=== PATIENT | female | born 1995 | race Caucasian/White ===

== ENCOUNTER 2025-01-25 20:05 | Emergency (ER) | payer BC, OTHER, SELFPAY ==
--- OUTSIDE RECORDS SUMMARY | 2025-01-25 20:07 | XMS_ITS | Clinical Summary ---
Author Organization [facility] Address [address] [place] [address] Care Team Providers Care Home Visit Field Care Manager Name Role Phone Trish Salinas DO Primary Care Provider [phone] Allergies Active Allergy Reactions Criticality Noted Date Comments Gluten Verified in Meditech: Y, Severity in Meditech: S Lactose *Unknown 12/16/2022 Wheat Bran *Unknown 08/20/2014 Medications nystatin (MYCOSTATIN) creamIndication s:Intertrigo Apply topically to affected area(s) two times daily. 30 g 5 3 Active Active Problems Problem Noted Date Diagnosed Date Vitamin D deficiency 12/17/2022 Pap smear for cervical cancer screening 11/07/19 23 Overview (12/16/2022): 11/2022 NIL/HPV negative Plan: Pap/HPV due in 5 years Unspecified episodic mood disorder 06/01/2011 Bipolar I disorder, most rec ent episode (or current) manic, unspecified 10/22/2010 Attention deficit disorder with hyperactivity(31 4.01) 10/22/2010 PMS (premenstrual syndrome) 07/24/2009 Other acne Overview (08/22/2009): Noted from office visit on 08/05/2008. Alka Seals RN............... 08/22/2009 2:44 PM Resolved Problems Problem Noted Date Diagnosed Date Resolved Date Exercise induced bronchospasm 07/07/2009 11/17/2022 Immunizations Immunization Administration Dates Next Due DTP 1995 DTP-HIB 03/13/1996,1995 DTaP 10/02/1996 Hepatitis B (Adult) 1995 Hepatitis B, Unspecified 03/13/1996,0707/1995,1995,07/12 Hib Conjugate, Unspecified 06/26/1996,1995 Human Papilloma Virus Vaccine 02/03/2010, 009,05/29/2008 Influenza, IIV3 (Age >=3 years) 04/02/2013,02/18 MENINGOCOCCAL VACCINE 2 VIAL [id number] (MENVEO) 09/09/2011 MMR 06/26/1996 Oral Polio Vaccine 03/13/1996,1995, 996 Tdap 04/21/2018,12/22/2017,03/14/2007 Family History Medical History Relation Name Comments Psychiatric illness Father bipolar ADHD Psychiatric illness Maternal Aunt 1 Psychiatric illness Maternal Aunt 2 depre ssion Psychiatric illness Maternal Aunt 3 depre ssion Alcohol/Drug Maternal Grandfather Alcohol/Drug Maternal Grandmother Cancer-breast Maternal Grandmother Dx'd a t 46yr old 2008 Psychiatric illness Maternal Grandmother Psychiatric illness Maternal Uncle Other Mother migraines Psychiatric illness Mother history of depression Psychiatric illness Paternal Aunt ADHD, b ipolar Diabetes Paternal Grandfather Psychiatric illness Paternal Grandfather Diabetes Paternal Grandmother Hyperlipidemia Paternal Grandmother Other Paternal Grandmother Psychiatric illness Paternal Grandmother depression Good Health Sister Seizures No Family History Relation Name Status Comments Father Alive Maternal Aunt 1 Maternal Aunt 2 Maternal Aunt 3 Maternal Grandfather Maternal Grandmother Maternal Uncle Mother Alive Paternal Aunt Paternal Grandfather Paternal Grandmother Sister Alive Social History Tobacco Use Types Packs/Day Years Used Date Smoking Tobacco: Never Smokeless Tobacco: Never Tobacco Cessation:Counseling Given: No Alcohol Use Standard Drinks/Week Comments Not Currently 0 (1 standard drink = 0.6 oz pur e alcohol) PHQ-2 Answer Date Recorded PHQ-2 TOTAL SCORE 1 11/17/2022 Social Connections Answer Date Recorded Frequency of Communication with Friends and Fami ly Not on file 11/17/2022 Financial Resource Strain Answer Date R ecorded Difficulty of Paying Living Expenses Not on file 05/09/2021 Difficulty of Paying Living Expenses Not on file 05/09/2021 Comments No Sex and Gender Information Value Date Recorded Sex Assigned at Not on file Legal Sex Female 5:25 AM MUSIC JOURNALIST Gender Identity Not on file Sexual Orientation Not on file Obstetrics History Para Term AB IAB SAB Ectopic Multiple Livin g Live Births 0 0 0 0 0 0 0 0 0 0 Last Filed Vital Signs Vital Sign Reading Time Taken Comments Blood Pressure 110/72 04/05/2023 10:14 AM MUSIC JOURNALIST Pulse 71 04/05/2023 10:14 AM MUSIC JOURNALIST Temperature 36.6 C (97.8 F) 07/01/2018 3:39 PM MUSIC JOURNALIST Respiratory Rate 16 07/01/2018 3:39 PM MUSIC JOURNALIST Oxygen Saturation 98% 04/05/2023 10:14 AM MUSIC JOURNALIST Inhaled Oxygen Concentration - - Weight 103 kg (227 lb) 04/05/2023 10:14 AM MUSIC JOURNALIST Height 155.8 cm (5' 1.34) 04/05/2023 10:[address] Body Mass Index 42.42 04/05/2023 10:14 AM MUSIC JOURNALIST Plan of Treatment Health Maintenance Due Date Last Done Comments Depression screening for age 12+ 11/18/2023 11/17/2022 BMI (ht and wt on same day) for age 18+ 04/05/2024 04/05/2023, 11/17/2022, 09/25/2020, Additional history exists COVID-19 vaccine series ( season) 2025 04/12/2021, 03/15/2021 Influenza Vaccine (#1) 2025 04/02/2013, 2009 Pap test for age 21-65 11/18/2027 11/17/2022, 2022 Tetanus booster 04/21/2028 04/21/2018, 12/07, 03/14/2007 RSV vaccine for adults or (1 - 1-dose 75+ series) 2070 Hepatitis B series for 19+ Completed 03/13, 1995, 1995, Additional history exists HPV series for age 9-45 Completed 02/04/20 10, 04/21/2009, 05/29/2008 HIV for age 15-65 Completed 11/17/2022 Hepatitis C screening for age 18-79 Completed 11/17/2022 Pneumococcal series for age 6-49 Aged Out No longer eligible based on patient's age to complete this topic Procedures Procedure Name Priority Date/Time Associated Diagnosis Comments LC HIV-1/O/2, 4TH GENERATION Routine 11/17/2022 8:59 AM CDT Screening for HIV (human immunodeficiency virus) LC HCV ANTIBODY RFX TO QUANT PCR Routine 11/17/2022 8:59 AM CDT Need for hepatitis C screening test HPV HIGH RISK Routine 11/17/2022 8:40 AM CDT Screening for cervical cancer from Last 3 Months or Most Recently Relevant to Health Maintenance Results * LC HCV ANTIBODY RFX TO QUANT PCR (11/17/2022 8:59 AM CDT) HCV Ab Non Reactive Non Reactive 11/19/2022 12:08 PM CDT [facility] ([facility]) Blood BLOOD SPECIMEN / Unknown Venipuncture / Unknown 11/17/2022 8:59 AM CDT 11/17/2022 8:59 AM CDT Narrative [facility] ([facility]) - 11/19/2022 12:08 PM CDT Performed at: [address] [place] [id number] Arabic Translator: Dawood Ritchie MD, Phone: [phone] us Trish Salinas DO LABORATORY Final Result [facility] ([facility]) [address] [place] [id number], * LC HIV-1/O/2, 4TH GENERATION (11/17/2022 8:59 AM CDT) HIV Scr 4th Gen Non Reactive Non Reactive 11/19/2022 12:08 PM CDT [facility] ([facility]) Comment: HIV Negative HIV-1/HIV-2 antibodies and HIV-1 p24 antigen were NOT detected. There is no laboratory evidence of HIV infection. Blood BLOOD SPECIMEN / Unknown Venipuncture / Unknown 11/17/2022 8:59 AM CDT 11/17/2022 8:59 AM CDT Narrative [facility] ([facility]) - 11/19/2022 12:08 PM CDT Performed at: [address] [place] [id number] Arabic Translator: Dawood Ritchie MD, Phone: [phone] Trish Salinas DO LABORATORY Final Result Performing Organization Address City/[facility]/ZIP Co de Phone Number [facility] ([facility]) [address] [place] [id number], * HPV HIGH RISK (11/17/2022 8:40 AM CDT) [facility] TYPE 16 Negative Negative 11/22/2022 2:23 PM CDT [facility] TYPE 18 Negative Negative 11/22/2022 2:23 PM CDT [facility] OTHER HIGH RISK TYPES Negative Negative 11/22/2022 2:23 PM CDT [facility] Other (Cervical) Non-Blood / Unknown 11/17/2022 8:40 AM CDT 11/17/2022 4:55 PM CDT Narrative [facility] - 11/22/2022 2:23 PM CDT HPV types 16, 18, 31, 33, 35, 39, 45, 51, 52, 56, 58, 59, 66 and 68 DNA were undetectable or below the pre-set threshold. Methodology: Leonardo Aries 4800 HPV Test us Trish Salinas DO MICROBIOLOGY Final Result [facility] [address] [place] [address], [place] from Last 3 Months or Most Recently Relevant to Health Maintenance Care Teams Home Visit Field Care Manager Relationship Specialty Start Date End Date Trish Salinas DO [address] [place] [address] PCP - General Family Practice 11/17/22
[2025-01-25 20:22] VITALS: BP 130/64; PULSE 83; RESP 18; TEMP 36.6; O2SAT 100; BMI 41.8
--- NOTE | 2025-01-25 20:25 | CRLHL7_ITS ---
For Patients: As a result of the Cures Act, medical imaging exams and procedure reports are released immediately into your electronic medical record. You may view this report before your referring provider. If you have questions, please contact your health care provider. INDICATION: Fall onto wrist, injury today, fall on outstretched hand left hand TECHNIQUE: Wrist radiograph 3 views left COMPARISON: None FINDINGS: Bone: No acute fractures or aggressive bone lesions are identified. Joint: The radiocarpal, carpal, and carpometacarpal joints are unremarkable in appearance. Soft tissue: Unremarkable. No radiopaque foreign bodies are seen. IMPRESSION: 1. No acute osseous injuries are noted. Dictated by: Roc Lange MD @ 01/25/2025 20:51:20 (Electronically Signed)
--- NOTE | 2025-01-25 20:35 | ED.GENADULT ---
HPI - General Adult General Chief complaint: Extremity Pain/Injury, Upper Stated complaint: hurt left wrist/ would like an X-Ray Time Seen by Provider: 01/25/25 20:18 History of Present Illness HPI narrative: pt here with pain in left wrist wanting an x-ray, she was on a field trip with her child today and slipped on some uneven [place], fell on her left wrist, pain with movement 29-year-old woman presenting to the emergency department with concern of left wrist pain. Apparently had been [place] stomping on a field trip with her child and slipped falling forward somehow onto her left hand. Has wrapped the wrist area in Coban. Has pain in her wrist. Just felt she should be evaluated at this point is pain seems to have escalated further. No other significant injuries were sustained Related Data Home Medications ?Medication ?Instructions ?Recorded ?Confirmed No Known Home Medications 10/10/24 01/10/25 Allergies Allergy/AdvReac Type Severity Reaction Status Date / Time No Known Drug Allergies Allergy Verified 01/10/25 08:49 Review of Systems Status of ROS: Reports: 6 or more systems reviewed and unremarkable except as noted in History and below [facility] Medical History Exercise-induced bronchospasm ?J45.990 - Exercise induced bronchospasm (ICD-10) Surgical History History of wisdom tooth extraction ?K08.409 - Partial loss of teeth, unspecified cause, unspecified class (ICD-10) Family History Mother Depression Migraines Father ADHD (attention deficit hyperactivity disorder) Bipolar disorder Maternal Grandfather Alcohol dependence Paternal Grandmother Diabetes High cholesterol Depression Maternal Grandmother Breast cancer, Onset Age: 46 Alcohol dependence Aunt ADHD (attention deficit hyperactivity disorder) Bipolar disorder Paternal Grandfather Diabetes Aunt Depression Social History What is your current living situation?: I presently have a place to live Problems where you live: no known problems In the past 12 months, utilities in danger of being shut off: no In past 12 months, lack of transportation kept you from medical appts, meetings, work, or getting things needed for daily living: no In the past 12 mos, have been you worried that your food would run out before you had money to buy more?: never true In the past 12 mos, the food you bought just didn't last and you didn't have money to buy more?: never true How often does anyone, including family, friends and others, physically hurt you: never How often does anyone, including family, friends and others, insult or talk down to you: never How often does anyone, including family, friends and others, threaten you with harm: never How often does anyone, including family, friends and others, scream or curse at you: never Exam Narrative: Exam Narrative: I pleasant. Good energy. She unwrapped the Coban from the left wrist. Does have some pain near snuffbox but seems most tender at the base of the thumb or at least the 1st metacarpal carpal joint. Ulnar deviation in particular causes pain. Well-perfused peripherally. No apparent loss of sensation. Const: Vital Signs, click to edit/add: Vital Signs - 24 hr 01/25/25 20:22 Temperature 97.8 F Pulse Rate [Right Pulse Oximeter] 83 Respiratory Rate 18 Blood Pressure [Ri ght Upper Arm] 130/64 Pulse Oximetry 100 Oxygen Delivery Me thod Room Air Documenting provider has reviewed patient's vital signs: yes Course Vital Signs Vital signs: Initial Vital Signs Temperature 97.8 F 01/25/25 20:22 Temperature Source Temporal Artery Scan 01/25/25 20:22 Pulse Rate 83 01/25/25 20:22 Respiratory Rate 18 01/25/25 20:22 Blood Pressure 130/64 01/25/25 20:22 Blood Pressure Mean 86 01/25/25 20:22 Blood Pressure Position Sitting 01/25/25 20:22 Pulse Oximetry 100 01/25/25 20:22 Oxygen Delivery Method Room Air 01/25/25 20:22 Vital Signs Temperature 97.8 F 01/25/25 20:22 Pulse Rate 83 01/25/25 20:22 Respiratory Rate 18 01/25/25 20:22 Blood Pressure 130/64 01/25/25 20:22 Pulse Oximetry 100 01/25/25 20:22 Oxygen Delivery Method Room Air 01/25/25 20:22 Temperature 97.8 F 01/25/25 20:22 Pulse Rate 83 01/25/25 20:22 Respiratory Rate 18 01/25/25 20:22 Blood Pressure 130/64 01/25/25 20:22 Pulse Oximetry 100 01/25/25 20:22 Oxygen Delivery Method Room Air 01/25/25 20:22 Medical Decision Making MDM Narrative Medical decision making narrative: Appears to have sustained a wrist/thumb injury. I think more likely a sprain of sorts but would image to look also for potential scaphoid fracture. Three-view x-ray of the left wrist independently reviewed by me looks to be WNL. Did return to place a thumb spica splint which really did help her symptoms. INDICATION: Fall onto wrist, injury today, fall on outstretched hand left hand TECHNIQUE: Wrist radiograph 3 views left COMPARISON: None FINDINGS: Bone: No acute fractures or aggressive bone lesions are identified. Joint: The radiocarpal, carpal, and carpometacarpal joints are unremarkable in appearance. Soft tissue: Unremarkable. No radiopaque foreign bodies are seen. IMPRESSION: 1. No acute osseous injuries are noted. Dictated by: Roc Lange MD @ 01/25/2025 20:51:20 See patient discharge plan for further discussion Can remove your splint to clean up or for icing. Consider icing the sore area 2 - 3 times daily over the next few days. Elevate for comfort. Otherwise can take up to 800 mg of ibuprofen up to 1000 mg of acetaminophen per dose. Follow-up in the next 7-10 days if just not improved. Medical Records Medical records reviewed: Yes I reviewed the patient's medical records Discharge Plan Discharge Clinical Impression: Left thumb sprain Patient Disposition: Home, Self-Care Condition: Improved Instructions: Sprain (ED) Additional Instructions: Can remove your splint to clean up or for icing. Consider icing the sore area 2 - 3 times daily over the next few days. Elevate for comfort. Otherwise can take up to 800 mg of ibuprofen up to 1000 mg of acetaminophen per dose. Follow-up in the next 7-10 days if just not improved. Activity Level: No Restrictions Discharge Diet: Regular Prescriptions: No Action No Known Home Medications Follow Up/Referrals: Fito Corona MD [Primary Care Provider, Family Practice] Stand Alone Forms: [facility] Info Instructions
== END 2025-01-25 21:28 | disposition home or self-care (01) ==
PROVIDERS: Emergency Provider Family Medicine; PCP Family Medicine
DX: S63.502A Unspecified sprain of left wrist, initial encounter (principal); W01.0XXA Fall on same level from slipping, tripping and stumbling without subsequent striking against object, initial encounter
CPT/HCPCS: 29125; 73110; 99283; 99284

== ENCOUNTER 2025-05-06 09:53 | Outpatient (CLI) | payer BC, OTHER, SELFPAY | END 2025-05-06 09:54 | disposition home or self-care (01) | PROVIDERS: PCP Family Medicine; Visit Provider Family Medicine | DX: F41.9 Anxiety disorder, unspecified (principal); Z13.6 Encounter for screening for cardiovascular disorders; E66.9 Obesity, unspecified; Z68.38 Body mass index [BMI] 38.0-38.9, adult | CPT/HCPCS: 80053; 80061; 84443 ==